=== PATIENT | male | born 1955 | race Two or more races ===

== ENCOUNTER → 2021-06-18 | Outpatient (CLI) | payer OTHER | END | disposition home or self-care (01) | LOC: LAB 06:08 | PROVIDERS: ATTEND Orthopaedic Surgery | DX: Z01.812 Encounter for preprocedural laboratory examination (principal); Z20.822 Contact with and (suspected) exposure to COVID-19 ==

== ENCOUNTER 2021-06-20 06:42 | Day surgery (SDC) | payer OTHER ==
[2021-06-20] MEDS ORDERED: DEXAMETHASONE SOD PHOSPHATE 4 MG INJ IV ONE (06:43)
[2021-06-20] MEDS ORDERED: SEVOFLURANE 250 ML BOTTLE IH ONE (06:43)
[2021-06-20] MEDS ORDERED: PROPOFOL 200 MG/20 ML BOTTLE IV ONE (06:43)
[2021-06-20] MEDS ORDERED: ONDANSETRON 4 MG/2 ML VIAL IV ONE (06:43)
[2021-06-20] MEDS ORDERED: NEOSTIGMINE METHYLSULFATE 10 MG/10 ML VIAL IM ONE (06:43)
[2021-06-20] MEDS ORDERED: LIDOCAINE-MPF 2% 5 ML VIAL IJ ONE (06:43)
[2021-06-20] MEDS ORDERED: GLYCOPYRROLATE 0.2 MG/ML VIAL IJ ONE (06:43)
[2021-06-20] MEDS ORDERED: CEFAZOLIN 1 G VIAL IM ONE (06:43)
[2021-06-20] MEDS ORDERED: FENTANYL CITRATE 250 MCG/5 ML AMPUL ONE (08:50)
[2021-06-20] MEDS ORDERED: ROCURONIUM BROMIDE 50 MG/5 ML VIAL ONE (08:51)
[2021-06-20] MEDS ORDERED: HYDROMORPHONE 2 MG/1 ML DISP.SYRIN ONE (08:51)
[2021-06-20] MEDS ORDERED: BUPIVACAINE/EPI PF 0.5% 10 ML VIAL ONE (08:52)
[2021-06-20] MEDS ORDERED: POLYMYXIN B SULFATE 500,000 UNITS VIAL ONE (08:52)
[2021-06-20] MEDS ORDERED: BUPIVACAINE PF 0.5% 30 ML VIAL ONE (08:53)
[2021-06-20] MEDS ORDERED: ONDANSETRON 4 MG/2 ML VIAL ONE (11:50)
[2021-06-20] MEDS ORDERED: HYDROMORPHONE 1 MG/1 ML DISP.SYRIN ONE (11:50)
[2021-06-20] MEDS ORDERED: METOCLOPRAMIDE HCL 10 MG/2 ML VIAL ONE (12:12)
== END 2021-06-20 14:15 | disposition home or self-care (01) ==
LOC: DS 06:42
PROVIDERS: ATTEND Orthopaedic Surgery
DX: M75.42 Impingement syndrome of left shoulder (principal); M24.812 Other specific joint derangements of left shoulder, not elsewhere classified; I10 Essential (primary) hypertension; E11.9 Type 2 diabetes mellitus without complications; M19.90 Unspecified osteoarthritis, unspecified site; Z79.899 Other long term (current) drug therapy; Z98.890 Other specified postprocedural states; Z72.89 Other problems related to lifestyle
CPT/HCPCS: 23120; 23130; J0690; J1100; J1170 ×2; J2405 ×2; J2765; J3010; J3490 ×5; A4217; A4565; A4649; A4663; J7030